=== PATIENT | male | born 1970 | race Caucasian/White ===

== ENCOUNTER → 2021-01-22 09:47 | Outpatient (CLI) | payer SELFPAY ==
[2021-01-22 13:29] LABS: HIV 1 & 2 Ab/Ag 4th Gen Combo NEGATIVE (NEGATIVE)
== END ==
PROVIDERS: Visit Provider Physician Assistant
DX: Z02.89 Encounter for other administrative examinations (principal)
CPT/HCPCS: 36415; 87389